=== PATIENT | female | born 1995 | race Two or more races ===

== ENCOUNTER 2017-03-20 10:40 | Outpatient (CLI) | payer BC | END 2017-03-20 23:59 | disposition home or self-care (01) | LOC: WOU 10:40 | PROVIDERS: ATTEND Surgery | DX: L05.01 Pilonidal cyst with abscess (principal) | CPT/HCPCS: G0463 ==

== ENCOUNTER 2017-03-21 10:23 | Outpatient (CLI) | payer BC ==
[2017-03-21 11:37] LABS: CALCIUM, SERUM 8.9 mg/dL (8.5-10.1); CREATININE 0.6 mg/dL (0.6-1.3); POTASSIUM 3.6 mmol/L (3.5-5.1)
[2017-03-21 12:13] LABS: BASOPHILS # (AUTO) 0.1 /CMM (0.0-0.2); BASOPHILS % (AUTO) 0.7 % (0.0-2.0); EOSINOPHILS # (AUTO) 0.3 /CMM (0.0-0.7); EOSINOPHILS % (AUTO) 3.7 % (0.0-6.0); HEMATOCRIT 38 % (33-45); HEMOGLOBIN 12.7 g/dL (11.5-14.8); LYMPHOCYTES # (AUTO) 2.9 /CMM (0.8-4.8); LYMPHOCYTES % (AUTO) 35.4 % (20.0-44.0); MEAN CORPUSCULAR HEMOGLOBIN 29 PG (26.0-33.0); MEAN CORPUSCULAR HGB CONC 34 g/dl (31.0-36.0); MEAN CORPUSCULAR VOLUME 84 fL (82-100); MONOCYTES # (AUTO) 0.5 /CMM (0.1-1.30); MONOCYTES % (AUTO) 5.9 % (2.0-12.0); NEUTROPHILS # (AUTO) 4.4 /CMM (1.8-8.9); NEUTROPHILS % (AUTO) 54.3 % (43.0-81.0); PLATELET COUNT (AUTO) 233 /CMM (150-450); RDW COEFFICIENT OF VARIATION 12.8 (11.5-15.0); RED BLOOD CELL COUNT(AUTO) 4.45 MIL/uL (4.0-5.2); WHITE BLOOD COUNT (AUTO) 8.1 K/uL (4.3-11.0)
[2017-03-21 12:20] LABS: PROTHROMBIN TIME 10.7 SECS (9.5-12.7)
== END 2017-03-21 23:59 | disposition home or self-care (01) ==
LOC: LAB 10:23
PROVIDERS: ATTEND Surgery
DX: Z32.00 Encounter for pregnancy test, result unknown (principal); L05.91 Pilonidal cyst without abscess
CPT/HCPCS: 36415; 80048-TC; 84703-TC; 85025-TC; 85610-TC; 85730-TC

== ENCOUNTER 2017-03-27 05:44 | Day surgery (SDC) | payer BC ==
[2017-03-27] MEDS ORDERED: BUPIVACAINE MPF 0.5% W/EPI INJ 30 ML VIAL ONE (06:51)
[2017-03-27] MEDS ORDERED: LIDOCAINE HCL/PF 1% 30 ML SDV ONE (06:51)
[2017-03-27] MEDS ORDERED: CEFAZOLIN SODIUM/DEXTROSE,ISO 100 ML IV ONE (06:59)
[2017-03-27] MEDS ORDERED: SECONDARY IV SET 1 EA INFUS.SET MC ONE (07:05)
[2017-03-27] MEDS ORDERED: IV SET PRIMARY 1 EA INFUS.SET MC ONE (07:05)
[2017-03-27] MEDS ORDERED: NEEDLELESS EST SET LARGE BORE 1 EA INFUS.SET MC ONE (07:05)
[2017-03-27] MEDS ORDERED: IV NS 0.9% 1,000 ML ONE (07:05)
[2017-03-27] MEDS ORDERED: ROCURONIUM BROMIDE 50 MG/5 ML ONE (07:08)
[2017-03-27] MEDS ORDERED: FENTANYL PF 100MCG/2ML AMPUL ONE (07:08)
[2017-03-27] MEDS ORDERED: MIDAZOLAM HCL 2 MG/2ML VIAL ONE (07:08)
[2017-03-27] MEDS ORDERED: SEVOFLURANE 250 ML BOTTLE IH ONE (07:11)
[2017-03-27] MEDS ORDERED: METHYLENE BLUE AMP (1ML) 1 ML AMPUL ONE (07:15)
[2017-03-27] MEDS ORDERED: BACITRACIN 50000 UNITS/VIAL ONE (07:41)
[2017-03-27] MEDS ORDERED: IV LR 1000 ML 1,000 ML ONE (08:28)
== END 2017-03-27 09:35 | disposition home or self-care (01) ==
LOC: DS 05:44
PROVIDERS: ATTEND Surgery
DX: L05.01 Pilonidal cyst with abscess (principal)
CPT/HCPCS: 84703-TC; 88305-TC; J0690; J1100; J2250; J2405; J2704; J2710; J3010; J3490; J7030; J7120; Q9968

== ENCOUNTER 2017-04-03 11:55 | Outpatient (CLI) | payer BC | END 2017-04-03 23:59 | disposition home or self-care (01) | LOC: WOU 11:55 | PROVIDERS: ATTEND Surgery | DX: Z48.817 Encounter for surgical aftercare following surgery on the skin and subcutaneous tissue (principal); L05.01 Pilonidal cyst with abscess; M54.5 Low back pain | CPT/HCPCS: G0463 ==

== ENCOUNTER 2017-04-10 11:25 | Outpatient (CLI) | payer BC | END 2017-04-10 23:59 | disposition home or self-care (01) | LOC: WOU 11:25 | PROVIDERS: ATTEND Surgery | DX: Z48.817 Encounter for surgical aftercare following surgery on the skin and subcutaneous tissue (principal); L05.91 Pilonidal cyst without abscess; M54.5 Low back pain | CPT/HCPCS: G0463 ==

== ENCOUNTER 2017-04-20 14:00 | Outpatient (CLI) | payer BC | END 2017-04-20 23:59 | disposition home or self-care (01) | LOC: WOU 14:00 | PROVIDERS: ATTEND Surgery | DX: T81.31XA Disruption of external operation (surgical) wound, not elsewhere classified, initial encounter (principal); L05.91 Pilonidal cyst without abscess; M54.5 Low back pain | CPT/HCPCS: 11042; A6402 ==

== ENCOUNTER 2017-04-24 11:30 | Outpatient (CLI) | payer BC | END 2017-04-24 23:59 | disposition home or self-care (01) | LOC: WOU 11:30 | PROVIDERS: ATTEND Surgery | DX: T81.31XD Disruption of external operation (surgical) wound, not elsewhere classified, subsequent encounter (principal); L05.91 Pilonidal cyst without abscess; M54.5 Low back pain | CPT/HCPCS: 11042; A6402 ==

== ENCOUNTER 2017-04-27 11:35 | Outpatient (CLI) | payer BC | END 2017-04-27 23:59 | disposition home or self-care (01) | LOC: WOU 11:35 | PROVIDERS: ATTEND Surgery | DX: T81.31XD Disruption of external operation (surgical) wound, not elsewhere classified, subsequent encounter (principal); M54.5 Low back pain; L05.91 Pilonidal cyst without abscess | CPT/HCPCS: 11043; A6402; J3490 ==

== ENCOUNTER 2017-05-01 11:17 | Outpatient (CLI) | payer BC | END 2017-05-01 23:59 | disposition home or self-care (01) | LOC: WOU 11:17 | PROVIDERS: ATTEND Surgery | DX: T81.31XA Disruption of external operation (surgical) wound, not elsewhere classified, initial encounter (principal); L05.01 Pilonidal cyst with abscess; M54.5 Low back pain | CPT/HCPCS: 11043; A6402; A6407 ==

== ENCOUNTER 2017-05-08 11:50 | Outpatient (CLI) | payer BC | END 2017-05-08 23:59 | disposition home or self-care (01) | LOC: WOU 11:50 | PROVIDERS: ATTEND Surgery | DX: T81.31XA Disruption of external operation (surgical) wound, not elsewhere classified, initial encounter (principal); L05.91 Pilonidal cyst without abscess; M54.5 Low back pain | CPT/HCPCS: 11043; A6402; A6407 ==

== ENCOUNTER 2017-05-18 11:45 | Outpatient (CLI) | payer BC | END 2017-05-18 23:59 | disposition home or self-care (01) | DX: L05.91 Pilonidal cyst without abscess (principal); M54.5 Low back pain | CPT/HCPCS: 11042; A6402 ==

== ENCOUNTER 2017-05-25 12:42 | Outpatient (CLI) | payer BC | END 2017-05-25 23:59 | disposition home or self-care (01) | LOC: WOU 12:42 | PROVIDERS: ATTEND Surgery | DX: Z48.817 Encounter for surgical aftercare following surgery on the skin and subcutaneous tissue (principal); M54.5 Low back pain | CPT/HCPCS: A6402; G0463 ==

== ENCOUNTER 2017-06-08 12:10 | Outpatient (CLI) | payer BC | END 2017-06-08 23:59 | disposition home or self-care (01) | LOC: WOU 12:10 | PROVIDERS: ATTEND Surgery | DX: Z09 Encounter for follow-up examination after completed treatment for conditions other than malignant neoplasm (principal); M54.5 Low back pain | CPT/HCPCS: G0463 ==